=== PATIENT | male | born 1980 | race Hispanic/Latino ===

== ENCOUNTER 2019-09-20 12:36 | Emergency (ER) | payer SELFPAY ==
[2019-09-20] MEDS ORDERED: Ibuprofen 800 MG TAB ONE (13:45)
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
== END 2019-09-20 15:45 | disposition home or self-care (01) ==
LOC: ERS 12:36
DX: S39.012A Strain of muscle, fascia and tendon of lower back, initial encounter (principal); Z87.891 Personal history of nicotine dependence
CPT/HCPCS: 71046; 72040; L0120